=== PATIENT | female | born 1995 | race Caucasian/White ===

== ENCOUNTER 2019-06-27 17:25 | Emergency (ER) | payer OTHER ==
[2019-06-27] MEDS ORDERED: Cephalexin CAP* 500 MG PO ONE (18:10)
[2019-06-27 19:02] VITALS: BP 115/69
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
--- OUTSIDE RECORDS SUMMARY | 2019-06-28 01:22 | XMS REPORT | Continuity of Care Document ---
:1995 External Reference #:[id number] Author Name Mami Stewart NP Address [address] [place] [address] Care Team Providers Name Role Phone Mami Stewart NP Care Team Information Consultant Teacher Unavailable Payers Date Identification Numbers Payment Provider Subscriber Expires: 2010 Group Name: [facility]) Lobito Sorensen PayID: [id number] [address] [place] [address] Expires: 2019 Policy Number: [id number] [employer] Lobito Landeros Jonathan Group Number: [id number] [address] PayID: [id number] [place] [address] Effective: 2019 Policy Number: [id number] [facility] Lobitodank Sorensen Group Name: [place] [address] PayID: [id number] [place] [address] Problems Active Problems Provider Date Depressive disorder Teresa Cody M.D. 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 Tobacco Use Start: Unknown Never Smoked Cigarettes ETOH Use Occasionally consumes Glass of wine every alcohol other day Recreational Drug Use Denies Drug Use Tobacco Use Start: Unknown Patient has never smoked Smoking Status Reviewed: 01/16/18 Patient has never smoked Exercise Type/Frequency Exercises regularly twice per week Currently Active Patient is currently Safe sex sexually active Allergies, Adverse Reactions, Alerts Description No Known Drug Allergies Medications Active Medications SIG Qnty Indications Ordering Provider Date Sertraline HCL 1 by mouth 30tabs F41.9 Jama Rm, 04/03/2019 100mg every day [employer]EC[employer]IVE-[employer] Tablets History Medications Nortrel one by mouth 168tabs Z00.00 Jama Rm, 05/07/2019 - daily [employer] 06/04/2019 0.5/0.75/1-35 mg-mcg Tablets Sertraline HCL 1 by mouth 90tabs F41.9 Jama Rm, 03/02/2019 - 50mg every day [employer] 04/03/2019 Tablets Sertraline HCL 1 by mouth 60tabs F41.9 Jama Rm, 01/30/2019 - 25mg every day for [employer]-C 03/02/2019 Tablets one week then take 2 by mouth daily Apri 1 by mouth 168tabs Z00.00 Jama Rm, 01/30/2019 - 0.15-30mg-mcg every day [employer] 05/07/2019 Tablets Vitamin D take 1 capsule 8caps Jama Rm, 01/30/2019 - (Ergocalciferol) by mouth twice [facility] 03/01/2019 weekly for 4 [id number] Capsules weeks Fluconazole 1 by mouth now, 2tabs B37.3 Jama Rm, 01/30/2019 - 150mg may repeat in 1 [employer] 03/02/2019 Tablets week if sx still present No Active Medications Unknown 01/16/2018 - 01/30/2019 Cymbalta take two 60caps F32.9 Cristal Chin, 07/20/2017 - 20mg Caps DR capsules by Elma, R.Elda 01/16/2018 Part mouth once daily Effexor XR Take One 30caps Jailene Grey, 05/03/2017 - 37.5mg Caps Capsule By [facility] 09/08/2017 ER 24HR Mouth Every Day No Active Medications Unknown 05/03/2017 - 05/03/2017 Lexapro 1 by mouth 30tabs F32.9 Jailene Grey, 02/10/2017 - 10mg Tablets every day [facility] 05/03/2017 No Active Medications Unknown 12/06/2016 - 12/06/2016 Cymbalta 1 by mouth 30caps F32.9 Jailene Grey, 12/06/2016 - 20mg Caps DR every day [facility] 02/10/2017 Part No Active Medications Unknown 11/01/2016 - 11/01/2016 Bupropion HCL ER (XL) 1 by mouth 30tabs F32.9 Jailene Grey, 11/01/2016 - every day [facility] 12/06/2016 150mg Tablets ER 24HR Nitrofurantoin 1 capsule by 14caps N39.0 Mukund Clementtings 10/15/2016 - Monohyd Macro mouth twice III, [facility]- 11/01/2016 100mg daily for seven Capsules days Guaifenesin ac 1 tsp po q4hr 150ml 462 Jama Rm, 12/31/2013 - prn cough [facility]- 11/01/2016 100-10mg/5ML Syrup Paroxetine HCL Take One Tablet 30tabs 311 Jailene Grey, 03/23/2013 - 20mg By Mouth Every [facility] 11/01/2016 Tablets Day Citalopram Take 1 and 1/2 45tabs 311 Teresa Ibarra 03/16/2012 - Hydrobromide tablet po daily Elma Cody 03/23/2013 20mg Tablets Apri 1 po qd 1month [facility] - 0.15-30mg-mcg [facility] 11/01/2016 Tablets Immunizations CPT Code Status Date Vaccine Lot # [id number] Given 04/12/1995 DPT & Hib Vaccine, Combined [id number] Refused 11/01/2016 Influenza Virus Vaccine, Quadrivalent, 3 Yr > Quad , Preserv Free Vital Signs Date Vital Result Comment 06/04/2019 3:50pm Weight 147.38 lb Weight 66.849 kg BP Systolic 120 mmHg BP Diastolic 82 mmHg Heart Rate 82 /min Body Temperature 98.6 F Respiratory Rate 16 /min Last Menstrual Period [id number] O2 % BldC Oximetry 98 % 04/24/2019 10:53am Weight 144.00 lb Weight 65.318 kg BP Systolic 108 mmHg BP Diastolic 70 mmHg Heart Rate 72 /min Body Temperature 97.8 F Respiratory Rate 16 /min 03/02/2019 9:33am Weight 144.00 lb Weight 65.318 kg BP Systolic 112 mmHg BP Diastolic 68 mmHg Heart Rate 68 /min Body Temperature 97.3 F Respiratory Rate 14 /min 01/30/2019 10:11am Weight 143.00 lb Weight 64.865 kg BP Systolic 112 mmHg BP Diastolic 68 mmHg Heart Rate 76 /min Body Temperature 97.9 F Respiratory Rate 16 /min Height 66 inches 5'6" BMI (Body Mass Index) 23.1 kg/m2 01/16/2018 9:27am Weight 146.00 lb Weight 66.226 kg BP Systolic 114 mmHg BP Diastolic 76 mmHg Heart Rate 71 /min Body Temperature 96.4 F Respiratory Rate 16 /min Height 66.25 inches 5'6.25" BMI (Body Mass Index) 23.4 kg/m2 Last Menstrual Period [id number] O2 % BldC Oximetry 98 % 12/06/2016 10:15am Weight 131.00 lb Weight 59.422 kg BP Systolic 118 mmHg BP Diastolic 78 mmHg Heart Rate 74 /min Body Temperature 98.2 F Respiratory Rate 16 /min O2 % BldC Oximetry 99 % 11/01/2016 8:48am Weight 134.00 lb Weight 60.782 kg BP Systolic 100 mmHg BP Diastolic 70 mmHg Heart Rate 64 /min Body Temperature 97.9 F Respiratory Rate 12 /min 10/15/2016 8:11am Weight 135.00 lb Weight 61.236 kg BP Systolic 95 mmHg BP Diastolic 50 mmHg Heart Rate 80 /min Body Temperature 98.2 F 12/31/2013 10:13am Weight 168.00 lb Weight 76.205 kg BP Systolic 100 mmHg BP Diastolic 62 mmHg Heart Rate 72 /min Body Temperature 97.8 F 04/18/2013 8:58am Weight 145.00 lb Weight 65.772 kg BP Systolic 126 mmHg BP Diastolic 70 mmHg Heart Rate 72 /min 03/23/2013 9:14am Weight 146.00 lb Weight 66.226 kg BP Systolic 114 mmHg BP Diastolic 70 mmHg Heart Rate 80 /min 06/14/2012 10:06am Weight 146.00 lb Weight 66.226 kg BP Systolic 112 mmHg BP Diastolic 72 mmHg Heart Rate 76 /min Body Temperature 97.3 F Weight Percentile 80th 04/17/2012 3:18pm Weight 147.00 lb Weight 66.679 kg BP Systolic 132 mmHg BP Diastolic 74 mmHg Heart Rate 92 /min Weight Percentile 81st 03/16/2012 3:01pm Weight 145.00 lb Weight 65.772 kg BP Systolic 118 mmHg BP Diastolic 74 mmHg Heart Rate 92 /min Height 65 inches 5'5" Height Percentile 61 % Weight Percentile 79th BMI (Body Mass Index) 24.1 kg/m2 Body Mass Index Percentile 76 % Results Test Date Facility Test Result H/L Range Note GC/Chlamydia 04/24/2019 [facility] Chlamydia Negative Negative Amplified Rna [phone] trachomatis Rna Neisseria gonorrhoeae (GC) Rna Negative Negative Laboratory test 04/24/2019 [facility] Gardnerella/ Yeast: SEE RESULT 1 finding [phone] Vaginal Dna BELOW Trichomonas Vaginalis Rna Negative Negative 2 Laboratory test 01/30/2019 [facility] Cytology SEE RESULT 3 finding [phone] BELOW GC/Chlamydia 01/30/2019 [facility] Chlamydia Negative Negative Amplified Rna [phone] trachomatis Rna Neisseria gonorrhoeae (GC) Rna Negative Negative Laboratory test 01/23/2019 [facility] Vitamin B12 238 pg/mL N 180-914 4 finding [phone] TSH (Thyroid Stim Horm) 1.87 mcIU/mL N 0.34-5.60 5 Vitamin D Total 25(Oh) 19.0 ng/mL Low 20-50 6 CBC Auto Diff 01/23/2019 [facility] White Blood 4.6 10^3/uL N 3.5-10.8 [phone] Count Red Blood Count 4.28 10^6/uL N 4.00-5.40 Hemoglobin 13.5 g/dL N 12.0-16.0 Hematocrit 40 % N 35-47 Mean Corpuscular Volume 92 fL N 80-97 Mean Corpuscular Hemoglobin 32 pg High 27-31 Mean Corpuscular HGB Conc 34 g/dL N 31-36 Red Cell Distribution Width 13 % N 10.5-15 Platelet Count 229 10^3/uL N 150-450 Mean Platelet Volume 8.8 fL N 7.4-10.4 Abs Neutrophils 2.3 10^3/uL N 1.5-7.7 Abs Lymphocytes 1.7 10^3/uL N 1.0-4.8 Abs Monocytes 0.4 10^3/uL N 0-0.8 Abs Eosinophils 0.1 10^3/uL N 0-0.6 Abs Basophils 0 10^3/uL N 0-0.2 Abs Nucleated RBC 0 10^3/uL Granulocyte % 51.1 % Lymphocyte % 38.0 % Monocyte % 8.4 % Eosinophil % 2.0 % Basophil % 0.5 % Nucleated Red Blood Cells % 0.1 Comp Metabolic Panel 01/23/2019 [facility] Sodium 140 mmol/L N 135-145 [phone] Potassium 4.2 mmol/L N 3.5-5.0 Chloride 106 mmol/L N 101-111 Co2 Carbon Dioxide 28 mmol/L N 22-32 Anion Gap 6 mmol/L N 2-11 Glucose 89 mg/dL N 70-100 Blood Urea Nitrogen 10 mg/dL N 6-24 Creatinine 0.76 mg/dL N 0.51-0.95 BUN/Creatinine Ratio 13.2 N 8-20 Calcium 9.3 mg/dL N 8.6-10.3 Total Protein 6.9 g/dL N 6.4-8.9 Albumin 4.5 g/dL N 3.2-5.2 Globulin 2.4 g/dL N 2-4 Albumin/Globulin Ratio 1.9 N 1-3 Total Bilirubin 0.60 mg/dL N 0.2-1.0 Alkaline Phosphatase 40 U/L N 34-104 Alt 9 U/L N 7-52 Ast 17 U/L N 13-39 Egfr Non- 92.7 >60 Egfr 112.2 >60 7 Urine DIP 10/15/2016 In House Lab Leukocytes + Neg (607)- - Urine Nitrites neg Neg Urobilinogen norm Norm Total Protein, Urine neg Neg Urine pH 5 5-6 Urine Blood trace Neg Specific [place] 1.020 1.01-1.02 Urine Ketones neg Neg Urine Bilirubin neg Neg Urine Glucose norm Norm Laboratory test 10/15/2016 [facility] Urine Culture And SEE RESULT 8 finding [phone] Sensitivities BELOW CBC No Diff 12/31/2013 [facility] White Blood Count 10.3 4.8-2 [phone] 10^3/uL 0.8 Red Blood Count 4.02 10^6/uL 4.0-5.4 Hemoglobin 12.5 g/dL 12.0-16.0 Hematocrit 35 % 35-47 Mean Corpuscular Volume 88 fL 80-97 Mean Corpuscular Hemoglobin 31 pg 27-31 Mean Corpuscular HGB Conc 36 g/dL 31-36 Red Cell Distribution Width 12 % 10.5-15 Platelet Count 219 10^3/uL 150-450 Mean Platelet Volume 9 um3 7.4-10.4 Comp Metabolic Panel 12/31/2013 [facility] Sodium 136 mmol/L 133-145 [phone] Potassium 4.0 mmol/L 3.5-5.0 Chloride 103 mmol/L 101-111 Co2 Carbon Dioxide 26.0 mmol/L 22-32 Anion Gap 7.0 mmol/L 2-11 Glucose 88 mg/dL 70-100 Blood Urea Nitrogen 6 mg/dL 6-24 Creatinine 0.70 mg/dL 0.50-1.40 BUN/Creatinine Ratio 8.6 8-20 Calcium 9.1 mg/dL 8.1-9.9 Total Protein 7.3 g/dL 6.2-8.1 Albumin 3.7 g/dL 3.6-5.4 Globulin 3.6 g/dL 2-4 Albumin/Globulin Ratio 1.0 1-3 Total Bilirubin 0.7 mg/dL 0.4-1.5 Alkaline Phosphatase 53 U/L 50-176 Alt 34 U/L 14-54 Ast 33 U/L 12-42 Egfr Non- 106.7 >60 Egfr 137.2 >60 9 Sandy Zamora 12/31/2013 [facility] Ebv Capsid Negative Negative Comprehensive [phone] Ag IgG Ab Ebv Capsid Ag IgM Ab Positive Negative Sandy-Zamora Nuclear Antigen Negative Negative Sandy-Zamora Virus Interp See Comment 10 Laboratory 12/31/2013 [facility] Monospot Positive Abnormal Negative test finding [phone] Laboratory 12/31/2013 [facility] Throat (SEE NOTE) 11 test finding [phone] Culture Laboratory 12/31/2013 In House Lab Strep NEG Neg test finding (607)- - Screen Basic 03/23/2013 [facility] Sodium 137 mmol/L 133- 145 Metabolic [phone] Panel Potassium 4.1 mmol/L 3.5-5.0 Chloride 105 mmol/L 101-111 Co2 Carbon Dioxide 26.0 mmol/L 22-32 Anion Gap 6.0 mmol/L 2-11 Glucose 83 mg/dL 70-100 Blood Urea Nitrogen 8 mg/dL 6-24 Creatinine 0.70 mg/dL 0.50-1.40 BUN/Creatinine Ratio 11.4 8-20 Calcium 9.6 mg/dL 8.1-9.9 Egfr Non- 107.8 >60 Egfr 138.6 >60 12 Vitamin D, 25 03/23/2013 [facility] 25-Hydroxy Vitamin <4.0 ng/mL Hydroxy [phone] D2 25-Hydroxy Vitamin D3 20 ng/mL 25-Hydroxy Vitamin D Total 20 ng/mL Abnormal 13 Liver Function 03/23/2013 [facility] Total Protein 6.8 g/dL 6.2-8.1 Panel [phone] Albumin 4.1 g/dL 3.6-5.4 Globulin 2.7 g/dL 2-4 Albumin/Globulin Ratio 1.5 1-3 Total Bilirubin 0.7 mg/dL 0.4-1.5 Direct Bilirubin 0.1 mg/dL 0.1-0.5 Indirect Bilirubin 0.6 mg/dL 0.3-1.0 Alkaline Phosphatase 39 U/L Low 50-176 Alt 20 U/L 14-54 Ast 19 U/L 12-42 Lipid Profile 03/23/2013 [facility] Triglycerides 62 mg/dL 40-200 (Trig/Chol/HDL) [phone] Cholesterol 183 mg/dL Less than 200 HDL Cholesterol 57 mg/dL 40-60 14 Cholesterol/HDL Ratio 3.2 Average 1-4.44 LDL Cholesterol 113.6 mg/dL High Less Than 100 15 Laboratory test 03/23/2013 [facility] TSH (Thyroid 0.98 0.34-5.60 16 finding [phone] Stimulating miu/mL Horm) CBC No Diff 03/23/2013 [facility] White Blood 5.0 4.8-10.8 [phone] Count 10^3/uL Red Blood Count 4.30 10^6/uL 4.0-5.4 Hemoglobin 13.1 g/dL 12.0-16.0 Hematocrit 39 % 35-47 Mean Corpuscular Volume 90 fL 80-97 Mean Corpuscular Hemoglobin 31 pg 27-31 Mean Corpuscular HGB Conc 34 g/dL 31-36 Red Cell Distribution Width 12 % 10.5-15 Platelet Count 212 10^3/uL 150-450 Mean Platelet Volume 9 um3 7.4-10.4 Vad 06/14/2012 [facility] Vad Final Nonreactive Nonreactive 33 [phone] Laboratory test 06/14/2012 In House Lab Strep NEG Neg finding (756)- - Screen 1 SEE RESULT BELOW Name: REBECA SORENSEN : [address]: Jama Rm NP Acct: [id number] Unit: [id number] AGE: 23 Location: [facility] Re04/24/19 SEX: F Status: REG REF SPEC: [id number] JAYESH: 04/24/191154 [facility] DR: Jama Rm NP REQ: [id number] RECD: 04/24/19334 STATUS: COMP _ SOURCE: VAGINAL SPDESC: ORDERED: Indu,Yeast DNA COMMENTS: [id number] Would you like to order Trichomonas Vaginalis testing? Yes Procedure Result Reported Site Gardnerella/Yeast: Vaginal DNA Final 04/25/19- 1210 ML Organism 1 Negative Gardnerella Organism 2 Negative Haydee The presence of G. vaginalis, although suggestive, is not diagnostic for bacterial vaginosis. Results should be interpreted in conjuction with other clinical and laboratory data available. Women with vaginal discharge should be evaluated for risk factors of cervicitis and pelvic inflammatory disease, toxic shock syndrome (S.aureus), and if present, evaluated for organisms not included in this assay such as N. gonorrhoeae, C. trachomatis, Mobiluncus, Mycoplasma and/or Prevotella. Mixed infections may occur. The performance of this test on patient specimens collected during or immediately after antimicrobial therapy is unknown. The presence or absence of Haydee species, or G. vaginalis cannot be used as a test for therapeutic success or failure. * ML - Main Lab . END OF REPORT DEPARTMENT OF PATHOLOGY, [address] [place] [address] Andrea Nazario M.D. Director [facility] # [id number] 2 [id number] GC/Chlamydia Source?: Endocervical Trichomonas Source: Endocervical 3 SEE RESULT BELOW Name: REBECA SORENSEN : [address]: Jama Rm NP Acct: [id number] Unit: [id number] AGE: 23 Location: [facility] Re01/30/19 SEX: F Status: REG REF SPEC: [id number] JAYESH: 01/30/19-[address]: Jama Rm NP REQ: [id number] RECD: 01/30/19 STATUS: SOUT _ ORDERED: TP IMAGE ANALYS, HPV/Thin Prep, HPV 16/18 GENE COMMENTS: [id number] Negative for Intraepithelial lesion or Malignancy Date Time Test Result Flag (u) Normal Range 01/30/19 1132 @ HPV RNA RFLX GE Negative Negative @ @ The high-risk HPV types detected by the assay include: 16, @ 18, 31, 33, 35, 39, 45, 51, 52, 56, 58, 59, 66, and 68. A. Ectocervical/Endocervical Specimen Adequacy: Satisfactory of evaluation Transformation zone component identified Patient Information: HPV: High risk HPV RNA testing regardless of pap results. HPV 16/18 Genotype Reflex Actual Specimen Date: 01/30/19 Signed by and Reported on: JAKUB Campos (ASCP) 0756 This Pap test was evaluated with the assistance of the [employer] Test Imaging System. Due to cytologic findings at the counter caser microscope, comprehensive manual rescreening by a Esl Instructional Assistant may be required. The Pap Smear is a screening test designed to aid in the detection of premalignant and malignant conditions of the uterine cervix. It is not a diagnostic procedure and should not be used as the sole means of detecting cervical cancer. Both false- positive and false- negative reports do occur. Depending on your risk status, a Pap smear should be obtained and evaluated every 1-3 years. END OF REPORT DEPARTMENT OF PATHOLOGY, [address] [place] [address] Andrea Nazario M.D. Director [facility] # [id number] 4 Normal Range 180 to 914 Indeterminate Range 145 to 180 Deficient Range <145 5 [id number] 7 Because ethnic data is not always readily available, this report includes an eGFR for both -Americans and non- Americans. The National Kidney Disease Education Program (NKDEP) does not endorse the use of the MDRD equation for patients that are not between the ages of 18 and 70, are , have extremes of body size, muscle mass, or nutritional status, or are non- or non-. According to the National Kidney Foundation, irrespective of diagnosis, the stage of the disease is based on the level of kidney function: Stage Description GFR(mL/min/1.73 m(2)) 1 Kidney damage with normal or decreased GFR 90 2 Kidney damage with mild decrease in GFR 60-89 3 Moderate decrease in GFR 30-59 4 Severe decrease in GFR 15-29 5 Kidney failure <15 (or dialysis) 8 SEE RESULT BELOW Name: REBECA SORENSEN : [address]: Mukund Lopez III, NP Acct: [id number] Unit: [id number] AGE: 20 Location: [facility] Re10/15/16 SEX: F Status: REG REF SPEC: [id number] JAYESH: 10/15/160852 [facility] DR: Mukund Lopez III RADIATION OFFICER REQ: [id number] RECD: 10/15/16-1254 STATUS: COMP _ SOURCE: URINE SPDESC: ORDERED: Urine Culture COMMENTS: [id number] Urine Source: Random Procedure Result Reported Site Urine Culture Final 10/17/16- 832 ML Organism 1 ESCHERICHIA COLI Olive Count 75-100,000 (Many) CFU/ML 1. ESCHERICHIA COLI M.I.C. RX --------- ------ Ampicillin <=2 S Cefazolin <=4 S Cefepime <=1 S Ceftriaxone <=1 S Ciprofloxacin <=0.25 S Gentamicin <=1 S Levofloxacin <=0.12 S Meropenem <=0.25 S Nitrofurantoin <=16 S Tetracycline <=1 S Pipercillin/Tazobactam <=4 S Trimethoprim/Sulfamethoxazole <=20 S Amoxicillin/Clavulanic Acid <=2 S Aztreonam <=1 S Contact the Microbiology Department for any additional antibiotic reporting. * ML - MAIN LAB ([facility]) . END OF REPORT * ML=Testing performed at Main Lab DEPARTMENT OF PATHOLOGY, [address] [place] [address] Andrea Nazario M.D. Director [facility] # [id number] 9 Because ethnic data is not always readily available, this report includes an eGFR for both -Americans and non- Americans. The National Kidney Disease Education Program (NKDEP) does not endorse the use of the MDRD equation for patients that are not between the ages of 18 and 70, are , have extremes of body size, muscle mass, or nutritional status, or are non- or non-. According to the National Kidney Foundation, irrespective of diagnosis, the stage of the disease is based on the level of kidney function: Stage Description GFR(mL/min/1.73 m(2)) 1 Kidney damage with normal or decreased GFR 90 2 Kidney damage with mild decrease in GFR 60-89 3 Moderate decrease in GFR 30-59 4 Severe decrease in GFR 15-29 5 Kidney failure <15 (or dialysis) 10 RESULT: Results suggest recent infection. In most populations, at least 90% of the adult population will have been infected with EBV sometime in the past and therefore, will be positive for anti-VCA/IgG and anti- EBNA. Antibodies to EBNA develop 6-8 weeks after primary infection and remain present for life. Presence of VCA/ IgM antibodies indicates recent primary infection with EBV. Test Performed by: [facility] [place] [address] Behavioral Pediatrician: Rahul Mancilla III, M.D. 11 RUN DATE: 01/02/14 [facility] LIVE PAGE 1 RUN TIME: [address] [place] [address] Specimen Inquiry Name: REBECA SORENSEN : [address]: Jama Rm NP Acct: [id number] Unit: [id number] AGE: 18 Location: [facility] Re12/31/13 SEX: F Status: REG REF SPEC: [id number] JAYESH: 12/31/13-[address]: Jama Rm NP REQ: [id number] RECD: 12/31/13 STATUS: COMP _ SOURCE: THROAT SPDESC: ORDERED: Throat Culture QUERIES: Medent Number [id number] Procedure Result Verified Site Throat Culture Final 01/02/14- 0954 ML Organism 1 STREP GROUP B Quantity 3+ Organism 2 NORMAL JC Quantity 3+ Susceptibility testing of penicillins and other B-lactams approved by FDA for treatment of Streptococcus pyogenes (Group A Strep) and Streptococcus agalactiae (Group B Strep) is not necessary for clinical purposes and need not be done routinely, since as with vancomycin, resistant strains have not been recognized. (CLSI J302-C21;p.66) Positive isolates will be saved for one week. Please call the Microbiology Laboratory if further susceptibility testing is needed. END OF REPORT * ML=Testing performed at Main Lab DEPARTMENT OF PATHOLOGY, [address] [place] [address] Andrea Nazario M.D. Director [facility] Permit #[id number] 12 Because ethnic data is not always readily available, this report includes an eGFR for both -Americans and non- Americans. The National Kidney Disease Education Program (NKDEP) does not endorse the use of the MDRD equation for patients that are not between the ages of 18 and 70, are , have extremes of body size, muscle mass, or nutritional status, or are non- or non-. According to the National Kidney Foundation, irrespective of diagnosis, the stage of the disease is based on the level of kidney function: Stage Description GFR(mL/min/1.73 m(2)) 1 Kidney damage with normal or decreased GFR 90 2 Kidney damage with mild decrease in GFR 60-89 3 Moderate decrease in GFR 30-59 4 Severe decrease in GFR 15-29 5 Kidney failure <15 (or dialysis) 13 Interpretation: 10-24 (mild to moderate deficiency) -- REFERENCE VALUE -- 25-HYDROXY D TOTAL (D2+D3) Optimum levels in the normal population are 25-80 Test Performed by: [facility] [address] [address] Behavioral Pediatrician: Rahul Mancilla III, M.D. 14 HDL Interpretation: Undesirable: High Risk: Less than 40 MG/DL Desirable: Low Risk: Greater than 60 MG/DL 15 LDL Interpretation: Low Risk Optimal Level: LDL Less than 100 MG/DL Near or Above Optimal: LDL 100-129 MG/DL Borderline High Risk: LDL 130-159 MG/DL High Risk: LDL 160-189 MG/DL Very High Risk: LDL Greater than 189 MG/DL 16 FASTING 10 HOUR 17 It is recognized that currently available assays for the detection of antibodies to HIV-1 and/or HIV-2 may not detect all infected individuals. HIV antibodies may be undetectable in some stages of the infection and in some clinical conditions. The performance of this assay has not been established for populations of infants or children. Assayed by Chemiluminescence Microparticle Immunoassay on the [employer] Centaur CP. Values obtained with different methods or kits cannot be used interchangeably.The diagnostic specificity of the [employer] Centaur 1/O/2 Enhanced assay in the low risk population was 99.90% (6052/6058) with a 95% confidence interval of 99.78 to 99.96%. Procedures Date Code Description Status 06/04/2019 13054 EKG, at Least 12 Leads w/Interpretation and Report Completed Encounters Type Date Location Provider Dx Diagnosis Office Visit 04/24/2019 Main Office Jama Rm, N93.0 Postcoital and 11:00a PROJECT EXECUTIVE-C contact bleeding N94.2 Vaginismus J02.9 Acute pharyngitis, unspecified Office Visit 03/02/2019 9:30a Main Office Jama Luna F41.9 Anxiety disorder, Storm, PROJECT EXECUTIVE-C unspecified Office Visit 01/30/2019 10:15a Main Office Jama Luna Z00.00 Encntr for general Storm, PROJECT EXECUTIVE-C adult medical exam w/o abnormal findings F41.9 Anxiety disorder, unspecified B37.3 Candidiasis of vulva and vagina Office Visit 01/16/2018 9:00a Main Office Alicia Smith, Z00.00 Encntr for RADIATION OFFICER general adult medical exam w/o abnormal findings F43.21 Adjustment disorder with depressed mood Office Visit 12/06/2016 10:15a Main Office Jailene Grey, F32.9 Major depressive PROJECT EXECUTIVE-C disorder, single episode, unspecified Office Visit 11/01/2016 8:45a Main Office Jailene Grey, F32.9 Major depressive PROJECT EXECUTIVE-C disorder, single episode, unspecified Office Visit 10/15/2016 8:00a Main Office Mukund Lopez N39.0 Urinary tract III, PROJECT EXECUTIVE-C infection, site not specified Office Visit 12/31/2013 10:15a Main Office Jama Rm, 462 Pharyngitis Acute PROJECT EXECUTIVE-C Office Visit 04/18/2013 9:00a Main Office Jailene Grey, 311 Depressive Disorder PROJECT EXECUTIVE-C Not Elsewhere Spec Office Visit 03/23/2013 9:15a Main Office Jailene Que, 311 Depressive Disorder PROJECT EXECUTIVE-C Not Elsewhere Spec Office Visit 06/14/2012 10:00a Main Office Jailene Cornejokelvey, 462 Pharyngitis Acute PROJECT EXECUTIVE-C V73.89 Screening Examination Viral Diseases Other Spec Office Visit 04/17/2012 3:15p Main Office Teresa Whaley Depressive Disorder Elma Cody Not Elsewhere Spec Office Visit 03/16/2012 3:00p Main Office Teresa Whaley Depressive Disorder Elma Cody Not Elsewhere Spec Plan of Treatment 06/04/2019 - Mami Stewart, NPR07.9 Chest pain, unspecifiedFollow up:.Z30.8 Encounter for other contraceptive managementRecommendations:Hormonal control is any pill, injection, device, or treatment that uses hormones to prevent in women. There are a few different kinds of hormonal control. Some contain the hormones estrogen and progestin. Others contain only progestin. All hormonal control methods are veryeffective. The methods differ in how easy they are to use and their side effects: -Pills ?? Women who take control pills need to take a pill every day. Skipping pills can increase the chance of getting . control pill packets usually include 4 to 7 days of hormone-free pills each month. It is during these hormone -free days that women get their period. Women who prefer not to get aperiod can skip the hormone-free pills and take a hormone pill every day instead. This is called continuous dosing. It can be done with the patch and the vaginal ring as well. Most control pills contain estrogen and progestin but there is one that contains only progestin. -Skin patches ?? Womencan wear a hormone patch on their upper arm, shoulder, back, or hip. The patch (brand name: Xulane) must be changed once a week. Normally women wear a new patch each week for 3 weeks and then leave thepatch off during week 4. Week 4 is when women have their period. Skin patches for contraception contain both estrogen and progestin. - Vaginal rings ?? A woman can put a bendable ring in her vagina that can stay in place for 3 weeks at a time. This ring (brand name: NuvaRing) releases hormones in the vagina. It should not be removed when the woman has sex. She should check before and after sex to make sure the ring is in place. If the ring is removed or falls out, it can stay out for up to 3 hours.Normally women use the ring for 3 weeks and then go without a ring during week 4. Week 4 is when women have their period. Vaginal rings for contraception contain both estrogen and progestin. -Injections ?? Women who use hormone injections get a shot in the arm or butt every 3 months. Injections for control (brand name: Depo- Provera) contain only progestin. -Implants ?? A control implantis a tiny alissa that releases hormones in the arm. It must be implanted by a doctor or nurse and can stay in the arm for up to 3 years. Implants for control ( brand name: Nexplanon) contain only progestin. -Hormone-releasing IUD ?? IUD stands for "intrauterine device." This is a device that is placed inside the uterus to prevent . Some IUDs work by releasing hormones into the body. One is called Yahaira, and it can stay in place for up to 3 years. The others are called Mirena or Liletta, and they can stay in place for up to 5 years. The hormone-releasing IUDs contain only progestin. Hormonal control is a safe and reliable way to prevent for most women. But it does not protect women from infections that spread through sex (called " sexually transmitted infections" or "sexually transmitted diseases"). As you think about your decision, think about how likely you are to use each method the right way. Can you remember to take a pill every day? Can you remember to change a patch once a week? Long-acting methods (IUD, implant) are the most convenient because they work for3 to 5 years, depending on the method. The injection, which works for 3 months, is more convenient than the pill, patch, or ring. Also, ask your doctor how the method you are thinking about will affectyour period. See the table for a list of side effects and risks for each of the different forms. Some women should not use estrogen-containing hormonal control. This includes women who: -Are age 35 or older and smoke cigarettes ?? These women are at increased risk for heart attacks and strokes. -Are -Have had blood clots or a stroke in the past -Are being treated for breast cancer, or have had breast cancer before -Have irregular or very heavy periods ?? Women with this problem should have it checked out before starting hormonal control. -Have some types of liver disease?? Hormonal control can make some types of liver disease worse. -Have some types of heart disease -Get the type of migraine headaches that cause vision problems ( flashing or zigzag lights) Women who have high blood pressure can use hormonal control, but their blood pressure needs to be followed closely by a doctor. Many women who can't take estrogen-containing hormonal control can take other kinds of hormonal control that contain only progestin. Some medicines can affecthow well hormonal control works. These include: -Some medicines used to prevent seizures (called "anticonvulsants") -Some antibiotics -Joseph's Wort (an herbal medicine for depression) If you take any of these medicines, talk to your doctor about how to handle control. Also, if you already take hormonal control, mention it to any doctor or nurse who might be prescribing medicines for you. If you have sex and have forgotten to use your control, you can take a "morning after" pill to reduce the risk of . Do this as soon as possible after sex.J02.9 Acute pharyngitis, unspecified
== END 2019-06-27 19:01 | disposition home or self-care (01) ==
LOC: ED 17:25
DX: L03.114 Cellulitis of left upper limb (principal)
CPT/HCPCS: 99282; A9270-GY